=== PATIENT | male | born 1935 | race Two or more races ===

== ENCOUNTER 2023-10-22 21:33 | Inpatient (IN) | payer OTHER, MEDICAID, MEDICARE ==
[~2023-10-22] VITALS: Ht 165.1 cm; Wt 66.7 kg
[2023-10-22 23:37] LABS: HEMATOCRIT. 36.9 % (42.0-52.0); MEAN CORPUSCULAR HGB CONC 32.5 g/dL (31.0-37.0); MEAN CORPUSCULAR VOLUME 92.2 fL (80.0-94.0); MEAN PLATELET VOLUME 6.7 fl (7.4-10.4); PLATELET 223 x1000/uL (130-400); RED BLOOD CELL COUNT 3.99 mill/uL (4.7-6.1); RED CELL DISTRIBUTION WIDTH 14.7 % (11.6-14.6); WHITE BLOOD COUNT 9.3 x1000/uL (4.5-11.0)
[2023-10-22 23:49] LABS: DIFFERENTIAL COMMENT 1
[2023-10-22 23:52] LABS: ALANINE AMINOTRANSFERASE 19 IU/L (10-49); ALBUMIN 4.1 g/dL (3.2-4.8); ASPARTATE AMINOTRANSFERASE 17 IU/L (<34); BILIRUBIN TOTAL 0.4 mg/dL (0.1-1.0); CALCIUM 8.9 mg/dL (8.7-10.4); CARBON DIOXIDE 27 mEq/L (21-32); CHLORIDE 98 mEq/L (98-107); CREATININE 1.1 mg/dL (0.6-1.3); GLUCOSE 126 mg/dL (70-105); PROTEIN TOTAL 6.8 g/dL (6.0-8.3); SODIUM 132 mEq/L (136-145); TROPONIN I HIGH SENSITIVITY 5 ng/L (3.0-53); UREA NITROGEN BLOOD 18 mg/dL (9-23)
[2023-10-23] MEDS ORDERED: SODIUM CHLORIDE 0.9% 1,000 ML IV ONE (03:00)
[2023-10-23] MEDS ORDERED: PIPERACILLIN/TAZO 3.375G/50ML 50 ML IV ONE (03:00)
[2023-10-23] MEDS ORDERED: VANCOMYCIN 1G PREMIX 200 ML IV ONE (03:00)
[2023-10-23 05:42] LABS: PLATELET ESTIMATE NORMAL
[2023-10-23] MEDS ORDERED: VANCOMYCIN 1G PREMIX 200 ML IV NR (08:15)
[2023-10-23] MEDS ORDERED: PIPERACILLIN/TAZO 3.375G/50ML 50 ML IV NR (08:15)
[2023-10-23] MEDS ORDERED: ACETAMINOPHEN 325MG TABLET PO PRN (08:45)
[2023-10-23] MEDS ORDERED: ONDANSETRON HCL 4MG/2ML INJ IV PRN (08:45)
[2023-10-23 10:30] LABS: CLARITY URINE CLEAR (CLEAR); COLOR URINE YELLOW (YELLOW); GLUCOSE URINE NEGATIVE (NEGATIVE); KETONES URINE NEGATIVE (NEGATIVE); LEUKOCYTE ESTERASE URINE NEGATIVE (NEGATIVE); NITRITE URINE NEGATIVE (NEGATIVE); OCCULT BLOOD URINE 2+ (NEGATIVE); PH URINE 6.5 (4.5-8.0); PROTEIN URINE 1+ (NEGATIVE); SPECIFIC GRAVITY URINE 1.013 (1.005-1.030); UROBILINOGEN URINE 0.2 E.U./dL (0.2-1.0)
[2023-10-23 11:00] LABS: SQUAMOUS EPITHELIAL CELL URINE FEW /lpf (RARE/1+)
[2023-10-23 11:01] LABS: BACTERIA URINE NONE SEEN; WBC URINE 0-2 /hpf (0-2)
[2023-10-23 19:45] VITALS: BP 186/83; PULSE 102; RESP 18; TEMP 100
[2023-10-23] MEDS ORDERED: METF-873 MT (21:22)
[2023-10-23] MEDS ORDERED: AMLO5TAB88 MT (21:22)
[2023-10-23] MEDS ORDERED: MEMA10TA55 PO (21:22)
[2023-10-23] MEDS ORDERED: FINA-37 PO (21:23)
[2023-10-23] MEDS ORDERED: ACET-2708 MT (21:23)
[2023-10-23] MEDS ORDERED: DONE-53 MT (21:23)
[2023-10-23] MEDS ORDERED: TAMS-11 MT (21:23)
[2023-10-23] MEDS ORDERED: ESCI5SOL2 PO (21:23)
[2023-10-23] MEDS ORDERED: ATOR20TA65 PO (21:23)
[2023-10-23] MEDS ORDERED: ESCI-7 MT (21:23)
[2023-10-23] MEDS ORDERED: LISI20TA31 PO (21:23)
[2023-10-23] MEDS ORDERED: APIX5TAB PO (21:23)
[2023-10-23] MEDS ORDERED: ACETAMINOPHEN 500MG TABLET PO PRN (21:45)
[2023-10-23 22:00] VITALS: BP 186/80; PULSE 102; RESP 18; TEMP 100
[2023-10-23] MEDS ORDERED: DEXTROSE 50% WATER 50ML SYRINGE IV PRN (22:00)
[2023-10-23] MEDS: LISINOPRIL 20MG TABLET PO SCH (22:41)
[2023-10-23] MEDS: TAMSULOSIN HCL 0.4MG SR CAPSULE PO SCH (22:42)
[2023-10-23] MEDS: CITALOPRAM HYDROBROMIDE 10MG TABLET PO SCH (22:42)
[2023-10-23] MEDS: MEMANTINE HCL 10MG TABLET PO SCH (22:42)
[2023-10-23] MEDS: ATORVASTATIN CALCIUM 20MG TABLET PO SCH (22:42)
[2023-10-23] MEDS: DONEPEZIL HCL 10MG TABLET PO SCH (22:43)
[2023-10-23] MEDS: AMLODIPINE 5MG TABLET PO SCH (22:43)
[2023-10-23] MEDS: FINASTERIDE 5MG TABLET PO SCH (22:43)
[2023-10-23] MEDS: APIXABAN 5 MG TABLET PO SCH (22:43)
[2023-10-23] MEDS: BLOOD SUGAR DIAGNOSTIC STRIP TEST SCH (23:00)
[2023-10-24] VITALS: BP 162/80; PULSE 106; RESP 18; TEMP 98.1
[2023-10-24 04:00] VITALS: BP 127/70; PULSE 103; RESP 18; TEMP 97.5
[2023-10-24] MEDS: INSULIN LISPRO 100 UNITS/ML SUBCUT SCH ×4 (07:10→20:54)
[2023-10-24 07:32] LABS: HEMATOCRIT 38.6 % (42.0-52.0); HEMOGLOBIN 12.5 g/dL (14.0-18.0); MEAN CORPUSCULAR HEMOGLOBIN 30.1 pg (28.0-32.0); MEAN CORPUSCULAR HGB CONC 32.3 g/dL (31.0-37.0); MEAN CORPUSCULAR VOLUME 93.3 fL (80.0-94.0); PLATELET 216 x1000/uL (130-400); RED BLOOD CELL COUNT 4.14 mill/uL (4.7-6.1); RED CELL DISTRIBUTION WIDTH 14.7 % (11.6-14.6); WHITE BLOOD COUNT 10.4 x1000/uL (4.5-11.0)
[2023-10-24 08:00] VITALS: BP 136/71; PULSE 94; RESP 18; TEMP 97.9
[2023-10-24 08:15] LABS: CALCIUM 8.9 mg/dL (8.7-10.4); CARBON DIOXIDE 24 mEq/L (21-32); CHLORIDE 94 mEq/L (98-107); CHOLESTEROL 185 mg/dL (<200); GLUCOSE 192 mg/dL (70-105); HDL CHOLESTEROL 28 mg/dL (>55); LDL CHOLESTEROL 138 mg/dL (5-100); POTASSIUM 3.7 mEq/L (3.5-5.1); SODIUM 129 mEq/L (136-145); TRIGLYCERIDE 59 mg/dL (0-150); UREA NITROGEN BLOOD 17 mg/dL (9-23)
[2023-10-24] MEDS: DONEPEZIL HCL 10MG TABLET PO SCH (08:34)
[2023-10-24] MEDS: APIXABAN 5 MG TABLET PO SCH ×2 (08:34→18:24)
[2023-10-24] MEDS: TAMSULOSIN HCL 0.4MG SR CAPSULE PO SCH (08:34)
[2023-10-24] MEDS: ATORVASTATIN CALCIUM 20MG TABLET PO SCH (08:34)
[2023-10-24] MEDS: FINASTERIDE 5MG TABLET PO SCH (08:34)
[2023-10-24] MEDS: CITALOPRAM HYDROBROMIDE 10MG TABLET PO SCH (08:34)
[2023-10-24] MEDS: MEMANTINE HCL 10MG TABLET PO SCH ×2 (08:35→18:23)
[2023-10-24] MEDS: AMLODIPINE 5MG TABLET PO SCH (08:35)
[2023-10-24] MEDS: LISINOPRIL 20MG TABLET PO SCH (08:35)
[2023-10-24] MEDS: BLOOD SUGAR DIAGNOSTIC STRIP TEST SCH ×3 (11:40→20:54)
[2023-10-24 12:00] VITALS: BP 167/86; PULSE 107; RESP 18; TEMP 101
[2023-10-24 16:00] VITALS: BP 144/81; PULSE 104; RESP 19; TEMP 99
[2023-10-24 20:00] VITALS: BP 111/56; PULSE 96; RESP 20; TEMP 97.9
[2023-10-25] VITALS: BP 127/69; PULSE 92; RESP 22; TEMP 97.8
[2023-10-25 04:00] VITALS: BP 114/66; PULSE 98; RESP 18; TEMP 98.6
[2023-10-25] MEDS: BLOOD SUGAR DIAGNOSTIC STRIP TEST SCH ×4 (05:50→21:00)
[2023-10-25] MEDS: INSULIN LISPRO 100 UNITS/ML SUBCUT SCH ×4 (07:10→21:00)
[2023-10-25 08:00] VITALS: BP 121/61; PULSE 94; RESP 18; TEMP 97.9
[2023-10-25] MEDS: FINASTERIDE 5MG TABLET PO SCH (08:28)
[2023-10-25] MEDS: ATORVASTATIN CALCIUM 20MG TABLET PO SCH (08:28)
[2023-10-25] MEDS: AMLODIPINE 5MG TABLET PO SCH (08:28)
[2023-10-25] MEDS: APIXABAN 5 MG TABLET PO SCH ×2 (08:28→17:17)
[2023-10-25] MEDS: MEMANTINE HCL 10MG TABLET PO SCH ×2 (08:28→17:17)
[2023-10-25] MEDS: TAMSULOSIN HCL 0.4MG SR CAPSULE PO SCH (08:29)
[2023-10-25] MEDS: CITALOPRAM HYDROBROMIDE 10MG TABLET PO SCH (09:00)
[2023-10-25] MEDS: DONEPEZIL HCL 10MG TABLET PO SCH (09:24)
[2023-10-25] MEDS: LISINOPRIL 20MG TABLET PO SCH (09:24)
[2023-10-25 12:00] VITALS: BP 126/59; PULSE 99; RESP 20; TEMP 97.9
[2023-10-25 16:00] VITALS: BP 137/73; PULSE 99; RESP 20; TEMP 98
[2023-10-25 20:00] VITALS: BP 149/77; PULSE 88; RESP 19; TEMP 98
[2023-10-26] VITALS: BP 157/59; PULSE 91; RESP 20; TEMP 98.4
[2023-10-26 04:00] VITALS: BP 159/77; PULSE 98; RESP 19; TEMP 97
[2023-10-26] MEDS: INSULIN LISPRO 100 UNITS/ML SUBCUT SCH ×3 (07:10→17:10)
[2023-10-26] MEDS: BLOOD SUGAR DIAGNOSTIC STRIP TEST SCH ×3 (07:28→16:40)
[2023-10-26] MEDS: DONEPEZIL HCL 10MG TABLET PO SCH (09:24)
[2023-10-26] MEDS: MEMANTINE HCL 10MG TABLET PO SCH ×2 (09:24→16:47)
[2023-10-26] MEDS: ATORVASTATIN CALCIUM 20MG TABLET PO SCH (09:24)
[2023-10-26] MEDS: TAMSULOSIN HCL 0.4MG SR CAPSULE PO SCH (09:24)
[2023-10-26] MEDS: APIXABAN 5 MG TABLET PO SCH ×2 (09:24→16:47)
[2023-10-26] MEDS: CITALOPRAM HYDROBROMIDE 10MG TABLET PO SCH (09:24)
[2023-10-26] MEDS: FINASTERIDE 5MG TABLET PO SCH (09:24)
[2023-10-26] MEDS: AMLODIPINE 5MG TABLET PO SCH (09:24)
[2023-10-26] MEDS: LISINOPRIL 20MG TABLET PO SCH (09:25)
[2023-10-26 15:43] VITALS: BP 138/78; PULSE 109; RESP 20; TEMP 98.1
[2023-10-26 17:25] VITALS: BP 152/77; PULSE 100; TEMP 98.1; O2SAT 100
[2023-10-26 17:26] VITALS: BP 152/77; PULSE 111; RESP 18; TEMP 98.1
[2023-10-26 20:00] VITALS: BP 132/75; PULSE 96; RESP 19; TEMP 98.7
== END 2023-10-26 21:15 | disposition home health service (06) | DRG 177 ==
LOC: ER 21:33 → 7EST 10-23 02:49
PROVIDERS: ADMIT Internal Medicine; ATTEND Internal Medicine
DX: U07.1 COVID-19 (principal); G93.41 Metabolic encephalopathy; F02.80 Dementia in other diseases classified elsewhere, unspecified severity, without behavioral disturbance, psychotic disturbance, mood disturbance, and anxiety; E11.9 Type 2 diabetes mellitus without complications; I10 Essential (primary) hypertension; G30.9 Alzheimer's disease, unspecified; Z78.1 Physical restraint status; Z79.4 Long term (current) use of insulin
CPT/HCPCS: 36415; 71045; 80048; 80053; 80061; 81003; 82962; 83036; 83605; 84145; 84484; 85025; 85027; 87426; 87804; 93005; 97162; 97166; 99285; J1815; J2543; J3370